=== PATIENT | male | born 1960 | race Hispanic/Latino ===

== ENCOUNTER 2018-03-25 13:24 | Emergency (ER) | payer SELFPAY ==
--- NOTE | 2018-03-25 15:03 | EDPHYS ---
Physician Documentation [facility] Name: Matthew Montaño Age: 57 yrs Sex: Male : 1960 Arrival Date: 03/25/2018 Time: 13:28 Bed Treatment Private MD: None, None ED Physician Alfred Moody HPI: 03/25 15:19 This 57 yrs old Male presents to ER via Ambulatory with complaints of Arm snw Injury. 15:19 The patient or guardian complains of deformity, pain, swelling, tenderness. The snw complaints affect the left bicep. Context: resulted from lifting or pulling, a heavy object. Onset: The symptoms/episode began/occurred suddenly, just prior to arrival, and became persistent. Treatment prior to arrival includes: no previous treatment. Associated signs and symptoms: Pertinent positives: pain, of the left bicep. Severity of symptoms: At their worst the symptoms were moderate. The patient has not experienced similar symptoms in the past. Historical: - Allergies: 13:38 No Known Allergies; aa5 - PMHx: 13:38 None; aa5 - PSHx: 13:38 None; aa5 - Immunization history:: Adult Immunizations unknown. - Social history:: Smoking status: Patient uses tobacco products, smokes one-half pack cigarettes per day. - Ebola Screening: : No symptoms or risks identified at this time. ROS: 15:13 Constitutional: Negative for fever, chills, and weight loss, Eyes: Negative for injury, snw pain, redness, and discharge, ENT: Negative for injury, pain, and discharge, Neck: Negative for injury, pain, and swelling, Cardiovascular: Negative for chest pain, palpitations, and edema, Respiratory: Negative for shortness of breath, cough, wheezing, and pleuritic chest pain, Abdomen/GI: Negative for abdominal pain, nausea, vomiting, diarrhea, and constipation, Back: Negative for injury and pain, : Negative for injury, bleeding, discharge, and swelling, Skin: Negative for injury, rash, and discoloration, Neuro: Negative for headache, weakness, numbness, tingling, and seizure. 15:13 MS/extremity: Positive for injury or acute deformity, pain, swelling, of the left arm. Exam: 15:10 Constitutional: This is a well developed, well nourished patient who is awake, alert, snw and in no acute distress. Head/Face: Normocephalic, atraumatic. Eyes: Pupils equal round and reactive to light, extra-ocular motions intact. Lids and lashes normal. Conjunctiva and sclera are non-icteric and not injected. Cornea within normal limits. Periorbital areas with no swelling, redness, or edema. ENT: Nares patent. No nasal discharge, no septal abnormalities noted. Tympanic membranes are normal and external auditory canals are clear. Oropharynx with no redness, swelling, or masses, exudates, or evidence of obstruction, uvula midline. Mucous membranes moist. Neck: Trachea midline, no thyromegaly or masses palpated, and no cervical lymphadenopathy. Supple, full range of motion without nuchal rigidity, or vertebral point tenderness. No Meningismus. Chest/axilla: Normal chest wall appearance and motion. Nontender with no deformity. No lesions are appreciated. Cardiovascular: Regular rate and rhythm with a normal S1 and S2. No gallops, murmurs, or rubs. Normal PMI, no JVD. No pulse deficits. Respiratory: Lungs have equal breath sounds bilaterally, clear to auscultation and percussion. No rales, rhonchi or wheezes noted. No increased work of breathing, no retractions or nasal flaring. Abdomen/GI: Soft, non-tender, with normal bowel sounds. No distension or tympany. No guarding or rebound. No evidence of tenderness throughout. Back: No spinal tenderness. No costovertebral tenderness. Full range of motion. Skin: Warm, dry with normal turgor. Normal color with no rashes, no lesions, and no evidence of cellulitis. Neuro: Awake and alert, GCS 15, oriented to person, place, time, and situation. Cranial nerves II-XII grossly intact. Motor strength 5/5 in all extremities. Sensory grossly intact. Cerebellar exam normal. Normal gait. 15:10 Musculoskeletal/extremity: ROM: Circulation is intact in all extremities. Sensation intact. Compartment Syndrome exam of affected extremity: is normal. left bicep muscle full at distal humerus. Vital Signs: 13:38 BP 126 / 79; Pulse 82; Resp 16 S; Temp 98.7(TE); Pulse Ox 98% on R/A; Weight 58.06 kg aa5 (R); Height 5 ft. 4 in. (162.56 cm) (R); Pain 01/29; 13:38 Body Mass Index 21.97 (58.06 kg, 162.56 cm) aa5 MDM: 14:54 Patient medically screened. snw 15:14 Data reviewed: vital signs, nurses notes. Data interpreted: Pulse oximetry: on room air snw is 98 %. Interpretation: normal. Counseling: I had a detailed discussion with the patient and/or guardian regarding: the historical points, exam findings, and any diagnostic results supporting the discharge/admit diagnosis, radiology results, the need for outpatient follow up, for definitive care, to return to the emergency department if symptoms worsen or persist or if there are any questions or concerns that arise at home. Special discussion: Based on the history and exam findings, there is no indication for further emergent testing or inpatient evaluation. I discussed with the patient/guardian the need to see the orthopedic surgeon for further evaluation of the symptoms. 03/25 13:55 Order name: Humerus Left XRAY; Complete Time: 15:10 snw 03/25 14:13 Order name: Sling; Complete Time: 15:43 snw Administered Medications: 15:43 Drug: Tetanus-Diphtheria Toxoid Adult 0.5 ml {Metal Bending Machine Operator: [email or web address]. Exp: aj1 05/23/2020. Lot #: [id number]. } Route: IM; Site: right deltoid; 15:44 Drug: [place] 5 mg-325 mg 1 tabs Route: PO; aj1 Disposition: 03/26 08:14 Co-signature as Attending Physician, Alfred Moody MD I agree with the assessment and yanet plan of care. Disposition: 03/25/18 15:03 Discharged to Home. Impression: Injury of muscle, fascia and tendon of other parts of biceps. - Condition is Stable. - Discharge Instructions: Tendon Injury, Tendon Repair, VIS, Tetanus, Diphtheria (Td) - CDC. - Prescriptions for Diclofenac Sodium 75 mg Oral Tablet Sustained Release - take 1 tablet by ORAL route 2 times per day; 30 tablet. - Medication Reconciliation Form, Thank You Letter, Antibiotic Education, Prescription Opioid Use form. - Follow up: Gagandeep Gloria MD; When: 1 - 2 days; Reason: Recheck today's complaints, Continuance of care, Re-evaluation by your physician. Signatures: Dispatcher [employer] Debbie Salas RN RN ajAlfred Riley MD MD cha Therrien, Shelly, REAL ESTATE LISTING CONSULTANT-C REAL ESTATE LISTING CONSULTANT-Csnw Rowena Barton, RN RN Airam Villarreal, RN RN aa5 Corrections: (The following items were deleted from the chart) 03/25 16:04 15:03 03/25/2018 15:03 Discharged to Home. Impression: Injury of muscle, fascia and iw tendon of other parts of biceps. Condition is Stable. Forms are Medication Reconciliation Form, Thank You Letter, Antibiotic Education, Prescription Opioid Use. Follow up: Gagandeep Gloria; When: 1 - 2 days; Reason: Recheck today's complaints, Continuance of care, Re-evaluation by your physician. snw
--- NOTE | 2018-03-25 15:03 | ER ---
Nurse's Notes [facility] Name: Matthew Montaño Age: 57 yrs Sex: Male : 1960 Arrival Date: 03/25/2018 Time: 13:28 Bed Treatment Private MD: None, None Diagnosis: Injury of muscle, fascia and tendon of other parts of biceps Presentation: 03/25 13:37 Presenting complaint: Patient states: "I was carrying plywood up the roof and I think I aa5 over strained my arm". pt c/o left upper arm pain. Transition of care: patient was not received from another setting of care. Onset of symptoms was March 25, 2018. Risk Assessment: Do you want to hurt yourself or someone else? Patient reports no desire to harm self or others. Initial Sepsis Screen: Does the patient meet any 2 criteria? No. Patient's initial sepsis screen is negative. Does the patient have a suspected source of infection? No. Patient's initial sepsis screen is negative. Care prior to arrival: None. 13:37 Method Of Arrival: Ambulatory aa5 13:37 Acuity: MARIEL 4 aa5 Triage Assessment: 15:30 General: Appears in no apparent distress. Behavior is calm, cooperative. iw 16:10 Injury Description:. iw Historical: - Allergies: 13:38 No Known Allergies; aa5 - PMHx: 13:38 None; aa5 - PSHx: 13:38 None; aa5 - Immunization history:: Adult Immunizations unknown. - Social history:: Smoking status: Patient uses tobacco products, smokes one-half pack cigarettes per day. - Ebola Screening: : No symptoms or risks identified at this time. Screenin:20 Abuse screen: Denies threats or abuse. Denies injuries from another. Nutritional aj1 screening: No deficits noted. Tuberculosis screening: No symptoms or risk factors identified. Fall Risk None identified. Assessment: 15:20 General: Appears in no apparent distress. uncomfortable, Behavior is calm, cooperative, aj1 appropriate for age. Pain: Complains of pain in left bicep Pain does not radiate. Pain currently is 4 out of 10 on a pain scale. Neuro: Level of Consciousness is awake, alert, obeys commands. Cardiovascular: Patient's skin is warm and dry. Respiratory: Airway is patent Respiratory effort is even, unlabored, Respiratory pattern is regular, symmetrical. GI: No signs and/or symptoms were reported involving the gastrointestinal system. : No signs and/or symptoms were reported regarding the genitourinary system. EENT: No signs and/or symptoms were reported regarding the EENT system. Derm: No signs and/or symptoms reported regarding the dermatologic system. Skin is pink, warm \\T\\ dry. normal. Musculoskeletal: Circulation, motion, and sensation intact. Vital Signs: 13:38 BP 126 / 79; Pulse 82; Resp 16 S; Temp 98.7(TE); Pulse Ox 98% on R/A; Weight 58.06 kg aa5 (R); Height 5 ft. 4 in. (162.56 cm) (R); Pain 4/10; 13:38 Body Mass Index 21.97 (58.06 kg, 162.56 cm) aa5 ED Course: 13:28 Patient arrived in ED. mr 13:28 None, None is Private Physician. mr 13:37 Triage completed. aa5 13:38 Arm band placed on. aa5 14:30 Humerus Left XRAY In Process Unspecified. EDMS 14:48 Sofy Baig FNP-C is PHCP. snw 14:48 Alfred Moody MD is Attending Physician. snw 14:56 Afua Gates, YURIY is Primary Nurse. rk2 15:02 Gagandeep Gloria MD is Referral Physician. snw 15:20 Patient has correct armband on for positive identification. Call light in reach. aj1 15:20 No provider procedures requiring assistance completed. Patient did not have IV access aj1 during this emergency room visit. 15:45 Sling applied to left arm. aj1 Administered Medications: 15:43 Drug: Tetanus-Diphtheria Toxoid Adult 0.5 ml {Internal Control Consultant: [email or web address]. Exp: aj1 05/23/2020. Lot #: [id number]. } Route: IM; Site: right deltoid; 15:44 Drug: [place] 5 mg-325 mg 1 tabs Route: PO; aj1 Outcome: 15:03 Discharge ordered by . snw 16:03 Discharged to home ambulatory, with family. iw 16:03 Condition: good 16:03 Discharge instructions given to patient, Instructed on discharge instructions, follow up and referral plans. medication usage, Demonstrated understanding of instructions, follow-up care, medications, Prescriptions given X 1. 16:04 Patient left the ED. iw Signatures: Dispatcher [employer] EDMS Debbie Alanis, RN RN aj1 Sofy Baig, LOCKSTITCH ZIPPER SETTER-C LOCKSTITCH ZIPPER SETTER-Csnw Mary Gastelum mr Rowena Barton, RN YURIY iw Airam Blackburn RN RN aa5 Afua Gates RN RN rk2
--- NOTE | 2018-03-25 15:05 | RAD REPORT ---
EXAM DESCRIPTION: RAD - Humerus Left - 03/25/2018 2:31 pm CLINICAL HISTORY: Left arm pain. COMPARISON: None. FINDINGS: No fracture or dislocation seen. Soft tissue swelling is seen mid arm.
[2018-03-25] MEDS ORDERED: HYDROCODONE/APAP 5/325 MG TAB ONE (15:16)
[2018-03-25] MEDS ORDERED: TETANUS & DIPHTHERIA TOX,ADULT 0.5 ML VIAL ONE (15:16)
== END 2018-03-25 16:04 | disposition home or self-care (01) ==
LOC: ER 13:24
DX: S46.292A Other injury of muscle, fascia and tendon of other parts of biceps, left arm, initial encounter (principal); X50.0XXA Overexertion from strenuous movement or load, initial encounter; Y93.89 Activity, other specified; Y92.9 Unspecified place or not applicable; Y99.9 Unspecified external cause status; F17.210 Nicotine dependence, cigarettes, uncomplicated; Z23 Encounter for immunization
CPT/HCPCS: 90714; 99284